=== PATIENT | male | born 1930 | race American Indian/Alaskan Native ===

== ENCOUNTER 2017-07-24 12:01 | Emergency (ER) | payer MEDICARE ==
--- NOTE | 2017-07-24 13:58 | Emergency Department Report ---
Blank Doc - Documentation Documentation: Patient is an 86-year-old male postop history of osteoarthritis who is presenting with belly and chest pain. Cystoscopy gone on for the last couple days. He called EMS last night and kept him calling due to feeling "weak. I will work up patient for ACS and electrolyte abnormality.
[2017-07-24 14:09] LABS: BUN/Creatinine Ratio 22; Blood Urea Nitrogen 24 mg/dL (9-20); Calcium 8.8 mg/dL (8.4-10.2); Hemolysis Index 20
[2017-07-24 14:13] LABS: Basophils % (Auto) 0.4 % (0.0-1.8); Lymphocytes # (Auto) 1.2 K/mm3 (1.2-5.4); Mean Corpuscular HGB Conc 32 % (32-34); Mean Corpuscular Volume 74 fl (84-94); Monocytes # (Auto) 0.6 K/mm3 (0.0-0.8); Monocytes % (Auto) 13.3 % (0.0-7.3); Platelet Count 165 K/mm3 (140-440); Red Blood Count 5.51 M/mm3 (3.65-5.03); Red Cell Distribution Width 14.2 % (13.2-15.2)
[2017-07-24 14:17] LABS: Mean Corpuscular Hemoglobin 24 pg (28-32)
[2017-07-24 14:22] LABS: Alanine Aminotransferase 21 units/L (7-56); Albumin 4.1 g/dL (3.9-5)
[2017-07-24 14:34] LABS: Bilirubin,Direct < 0.2 mg/dL (0-0.2)
--- NOTE | 2017-07-24 14:52 | Emergency Department Report ---
- General Chief complaint: Weakness Stated complaint: WEAKNESS Time Seen by Provider: 07/24/17 14:18 Source: patient Mode of arrival: Ambulatory Limitations: No Limitations - History of Present Illness Initial comments: Generalized weakness loose stool yellowish cough and left-sided chest pain. Told nurse he was having balance problems but he apparently misplaced his walker and his cane he denies any new focal deficits no headache here for evaluation of loose stool yellowish cough and left-sided chest pain MD Complaint: generalized weakness Location: generalized Severity scale (0 -10): 0 - Related Data Home Medications Medication Instructions Recorded Confirmed Last Taken Acetaminophen/Diphenhydramine 1 each PO Q6H PRN 05/04/16 05/04/16 Unknown [Tylenol Pm Ex-Strength Caplet] Foot Cleanser Combination No.1 1 each TP QDAY 05/04/16 05/04/16 Unknown [Kirby's Foot] Hydrocortisone 1% [Hydrocortisone 1 applicatio TP TID 05/04/16 05/04/16 Unknown 1% CREAM] Menthol [Biofreeze] 118 ml TP QDAY 05/04/16 05/04/16 Unknown Previous Rx's Medication Instructions Recorded Last Taken Type Triamcinolone 0.5% [Kenalog 0.5% 1 applic TP BID PRN #30 gram 05/04/16 Unknown Rx CREAM] Doxycycline [Vibramycin CAP] 100 mg PO Q12HR #14 capsule 07/24/17 Unknown Rx Oseltamivir Phosphate [Tamiflu] 75 mg PO BID #10 ml 07/24/17 Unknown Rx Allergies Allergy/AdvReac Type Severity Reaction Status Date / Time aspirin Allergy Bleeding Verified 10/30/13 10:08 ED Review of Systems ROS: Stated complaint: WEAKNESS Other details as noted in HPI Comment: All other systems reviewed and negative Constitutional: denies: diaphoresis, fever, malaise Respiratory: cough. denies: shortness of breath, SOB with exertion, SOB at rest , stridor Cardiovascular: chest pain, dyspnea on exertion. denies: palpitations Gastrointestinal: diarrhea. denies: abdominal pain, nausea, vomiting, hematemesis, melena, hematochezia Musculoskeletal: denies: joint swelling, arthralgia, myalgia Neurological: as per HPI. denies: headache, weakness, numbness, paresthesias, confusion, abnormal gait, vertigo ED Past Medical Hx - Past Medical History Previous Medical History?: Yes Hx Hypertension: Yes Hx CVA: Yes (2011) Hx GERD: Yes Hx Arthritis: Yes Additional medical history: back pain - Surgical History Past Surgical History?: Yes Additional Surgical History: Prostate - Social History Smoking Status: Never Smoker Substance Use Type: None - Medications Home Medications: Home Medications Medication Instructions Recorded Confirmed Last Taken Type Acetaminophen/Diphenhydramine 1 each PO Q6H PRN 05/04/16 05/04/16 Unknown History [Tylenol Pm Ex-Strength Caplet] Foot Cleanser Combination No.1 1 each TP QDAY 05/04/16 05/04/16 Unknown History [Kirby's Foot] Hydrocortisone 1% [Hydrocortisone 1 applicatio TP TID 05/04/16 05/04/16 Unknown History 1% CREAM] Menthol [Biofreeze] 118 ml TP QDAY 05/04/16 05/04/16 Unknown History Triamcinolone 0.5% [Kenalog 0.5% 1 applic TP BID PRN #30 gram 05/04/16 Unknown Rx CREAM] Doxycycline [Vibramycin CAP] 100 mg PO Q12HR #14 capsule 07/24/17 Unknown Rx Oseltamivir Phosphate [Tamiflu] 75 mg PO BID #10 ml 07/24/17 Unknown Rx ED Physical Exam - General Limitations: No Limitations General appearance: alert, in no apparent distress - Head Head exam: Present: atraumatic, normocephalic - Eye Eye exam: Present: normal appearance, PERRL, EOMI - ENT ENT exam: Present: normal exam - Neck Neck exam: Present: normal inspection - Respiratory Respiratory exam: Present: rhonchi. Absent: respiratory distress, accessory muscle use, decreased breath sounds, prolonged expiratory - Cardiovascular Cardiovascular Exam: Present: regular rate, normal rhythm, normal heart sounds - GI/Abdominal GI/Abdominal exam: Present: soft. Absent: distended, tenderness, guarding, rebound, rigid, mass, bruit, pulsatile mass - Extremities Exam Extremities exam: Present: normal inspection, normal capillary refill - Back Exam Back exam: Present: normal inspection. Absent: tenderness, CVA tenderness (R) - Neurological Exam Neurological exam: Present: alert, oriented X3, CN II-XII intact, other (nl cerebellar). Absent: motor sensory deficit ED Course Vital Signs 07/24/17 07/24/17 07/24/17 12:25 14:36 14:43 Temperature 98.9 F Pulse Rate 81 91 H 84 Respiratory 18 13 17 Rate Blood Pressure 126/74 Blood Pressure 134/70 [Left] O2 Sat by Pulse 97 99 Oximetry 07/24/17 07/24/17 07/24/17 14:44 15:00 15:16 Temperature Pulse Rate 84 79 102 H Respiratory 19 12 Rate Blood Pressure 117/67 117/67 Blood Pressure [Left] O2 Sat by Pulse 97 97 Oximetry 07/24/17 07/24/17 16:12 16:16 Temperature Pulse Rate 80 Respiratory 16 Rate Blood Pressure 117/67 117/67 Blood Pressure [Left] O2 Sat by Pulse 95 98 Oximetry - Reevaluation(s) Reevaluation #1: 07/24/17 17:49 pt wJovanny marcial and arlin mccurdy ED Medical Decision Making - Lab Data Result diagrams: 07/24/17 13:20 07/24/17 13:20 - EKG Data -: EKG Interpreted by Me EKG shows normal: sinus rhythm - EKG Data When compared to previous EKG there are: other (no stemi, no actue ischemic changes) - Radiology Data Radiology results: report reviewed - Medical Decision Making no pe, no pna, ekg and trop unremeariable , ssx c/w bronchtis, d/c home, no evidence emergent process at this time requriring further testing or admit, no evidence acs, ua neg Critical care attestation.: If time is entered above; I have spent that time in minutes in the direct care of this critically ill patient, excluding procedure time. ED Disposition Clinical Impression: Bronchitis, Atypical chest pain Disposition: - TO HOME OR SELFCARE Is pt being admited?: No Condition: Stable Instructions: Chronic Bronchitis (ED), Chest Pain (ED) Additional Instructions: see you;r 2 days, return if worse Prescriptions: Doxycycline [Vibramycin CAP] 100 mg PO Q12HR #14 capsule Oseltamivir Phosphate [Tamiflu] 75 mg PO BID #10 ml Referrals: PRIMARY CARE, [Primary Care Provider] - 3-5 Days Time of Disposition: 17:53
--- NOTE | 2017-07-24 15:04 | XRay Report ---
FINAL REPORT PROCEDURE: XR CHEST 1V AP TECHNIQUE: Chest radiograph anteroposterior view. CPT 44016 HISTORY: WEAKNESS COMPARISON: No prior studies are available for comparison. FINDINGS: Heart: Normal. Mediastinum/Vessels: Tortuous unwinding of aorta Lungs/Pleural space: Pleural plaque calcification left apex. Pleural reflection or slight atelectasis right lung base. Suspect mild COPD Bony thorax: No acute osseous abnormality. Life support devices: None. IMPRESSION: No definitive infiltrate significant effusion or pneumothorax.
--- NOTE | 2017-07-24 16:15 | Cat Scan Report ---
FINAL REPORT EXAM: CT ANGIO CHEST HISTORY: chest pain TECHNIQUE: CT chest CT angiogram with reconstructions PRIORS: None. FINDINGS: There is no evidence of filling defect within the central pulmonary vasculature to suggest the presence of acute pulmonary embolus. No evidence of mediastinal pathologic lymph node enlargement There is aneurysmal dilatation of the ascending thoracic aorta measuring 4.9 x 4.7 centimeters. Descending aorta is normal in caliber measuring 2.6 centimeters. There is no evidence for intimal flap to suggest presence of dissection. No focal pulmonary infiltrate identified. No pleural fluid collection seen. No acute pulmonary abnormality noted. Visualized portion of the upper abdomen demonstrates no acute change. IMPRESSION: Ascending aortic aneurysm no evidence for dissection No CT evidence for acute pulmonary embolus
[2017-07-24 17:15] LABS: Bilirubin,Urine NEG (Negative); Blood,Urine NEG (Negative); Color,Urine Yellow (Yellow); Mucus,Urine FEW /HPF; Nitrite,Urine NEG (Negative); Protein,Urine <15 mg/dL mg/dL (Negative); RBC,Urine < 1.0 /HPF (0.0-6.0); Urobilinogen,Urine < 2.0 mg/dL (<2.0); WBC,Urine < 1.0 /HPF (0.0-6.0)
[2017-07-24 18:37] VITALS: BP 134/58
== END 2017-07-24 18:38 | disposition home or self-care (01) ==
LOC: ED 12:01
DX: J40 Bronchitis, not specified as acute or chronic (principal); R07.89 Other chest pain; I10 Essential (primary) hypertension; Z86.73 Personal history of transient ischemic attack (TIA), and cerebral infarction without residual deficits; K21.9 Gastro-esophageal reflux disease without esophagitis; M19.90 Unspecified osteoarthritis, unspecified site; Z88.6 Allergy status to analgesic agent
CPT/HCPCS: 36415; 71045; 71275; 80048; 80074; 81001; 84484; 85025; 93005; 93010; 99285; Q9967

== ENCOUNTER 2019-04-25 09:23 | Emergency (ER) | payer MEDICARE ==
[2019-04-25 10:28] LABS: Bilirubin,Urine NEG (Negative); Blood,Urine NEG (Negative); Color,Urine Straw (Yellow); Protein,Urine <15 mg/dL mg/dL (Negative); Urobilinogen,Urine < 2.0 mg/dL (<2.0); WBC,Urine < 1.0 /HPF (0.0-6.0)
[2019-04-25 11:31] LABS: Hematocrit 40.5 % (35.5-45.6); Hemoglobin 12.6 gm/dl (11.8-15.2); Mean Corpuscular HGB Conc 31 % (32-34); Mean Corpuscular Volume 77 fl (84-94); Platelet Count 206 K/mm3 (140-440); Red Blood Count 5.25 M/mm3 (3.65-5.03)
[2019-04-25 12:17] LABS: Alanine Aminotransferase 13 units/L (7-56); Albumin 4.2 g/dL (3.9-5); BUN/Creatinine Ratio 13; Blood Urea Nitrogen 12 mg/dL (9-20); Calcium 9.5 mg/dL (8.4-10.2); Hemolysis Index 3
--- NOTE | 2019-04-25 13:06 | Emergency Department Report ---
ED General Adult HPI - General Chief complaint: Abdominal Pain Stated complaint: BACK AND ABD PAIN Time Seen by Provider: 04/25/19 11:07 Source: patient Mode of arrival: Ambulatory Limitations: No Limitations - History of Present Illness Initial comments: 88-year-old -Martiniquais male presents to the emergency room for chronic back pain, chronic left shoulder pain and right side abdominal pain patient states he's had abdominal pain 1 month. He can patient states drinking makes it worse. Patient says it's burning. Patient reports he's had his appendix taken out. Review of patient's medications shows that he is supposed to be on Protonix [id number] was well 2017 and still has a full bottle. Patient also supposed to be taken lisinopril which his last field in September 2017 as well as level thyroxine last field September 2018 and loratadine which he last field was in October 2017. Patient states that he recently saw his primary care doctor 2 weeks ago. Onset/Timin -: month(s) Location: abdomen, left, upper extremity (shoulder) Quality: aching Consistency: intermittent Improves with: none Worsens with: eating (drinking makes his abdomen burn) - Related Data Home Medications Medication Instructions Recorded Confirmed Last Taken Acetaminophen/Diphenhydramine 1 each PO Q6H PRN 05/04/16 05/04/16 Unknown [Tylenol Pm Ex-Strength Caplet] Foot Cleanser Combination No.1 1 each TP QDAY 05/04/16 05/04/16 Unknown [Kirby's Foot] Hydrocortisone 1% [Hydrocortisone 1 applicatio TP TID 05/04/16 05/04/16 Unknown 1% CREAM] Menthol [Biofreeze] 118 ml TP QDAY 05/04/16 05/04/16 Unknown Previous Rx's Medication Instructions Recorded Last Taken Type Triamcinolone 0.5% [Kenalog 0.5% 1 applic TP BID PRN #30 gram 05/04/16 Unknown Rx CREAM] DOXYCYCLINE Hyclate [Vibramycin 100 mg PO Q12HR #14 capsule 07/24/17 Unknown Rx CAP] Oseltamivir Phosphate [Tamiflu] 75 mg PO BID #10 ml 07/24/17 Unknown Rx Allergies Allergy/AdvReac Type Severity Reaction Status Date / Time aspirin Allergy Bleeding Verified 10/30/13 10:08 ED Review of Systems ROS: Stated complaint: BACK AND ABD PAIN Other details as noted in HPI ED Past Medical Hx - Past Medical History Previous Medical History?: Yes Hx Hypertension: Yes Hx CVA: Yes (2011) Hx GERD: Yes Hx Arthritis: Yes Additional medical history: back pain - Surgical History Past Surgical History?: Yes Hx Appendectomy: Yes Additional Surgical History: Prostate - Social History Smoking Status: Former Smoker Substance Use Type: None - Medications Home Medications: Home Medications Medication Instructions Recorded Confirmed Last Taken Type Acetaminophen/Diphenhydramine 1 each PO Q6H PRN 05/04/16 05/04/16 Unknown History [Tylenol Pm Ex-Strength Caplet] Foot Cleanser Combination No.1 1 each TP QDAY 05/04/16 05/04/16 Unknown History [Kirby's Foot] Hydrocortisone 1% [Hydrocortisone 1 applicatio TP TID 05/04/16 05/04/16 Unknown History 1% CREAM] Menthol [Biofreeze] 118 ml TP QDAY 05/04/16 05/04/16 Unknown History Triamcinolone 0.5% [Kenalog 0.5% 1 applic TP BID PRN #30 gram 05/04/16 Unknown Rx CREAM] DOXYCYCLINE Hyclate [Vibramycin 100 mg PO Q12HR #14 capsule 07/24/17 Unknown Rx CAP] Oseltamivir Phosphate [Tamiflu] 75 mg PO BID #10 ml 07/24/17 Unknown Rx ED Physical Exam - General Limitations: No Limitations General appearance: alert, in no apparent distress - Head Head exam: Present: atraumatic, normocephalic - Eye Eye exam: Present: normal appearance - ENT ENT exam: Present: mucous membranes moist - Respiratory Respiratory exam: Present: normal lung sounds bilaterally. Absent: respiratory distress - Cardiovascular Cardiovascular Exam: Present: regular rate, normal rhythm. Absent: systolic murmur, diastolic murmur, rubs, gallop - GI/Abdominal GI/Abdominal exam: Present: soft. Absent: tenderness, guarding - Back Exam Back exam: Present: normal inspection - Neurological Exam Neurological exam: Present: alert, oriented X3 - Psychiatric Psychiatric exam: Present: normal affect, normal mood - Skin Skin exam: Present: warm, dry, intact, normal color. Absent: rash ED Course Vital Signs 04/25/19 04/25/19 09:32 14:15 Temperature 98.1 F 97.7 F Pulse Rate 70 61 Respiratory 16 18 Rate Blood Pressure 158/74 Blood Pressure 191/89 [Left] O2 Sat by Pulse 98 98 Oximetry ED Medical Decision Making - Lab Data Result diagrams: 04/25/19 11:21 04/25/19 11:21 Laboratory Last Values WBC 4.9 K/mm3 (4.5-11.0) 04/25/19 11:21 RBC 5.25 M/mm3 (3.65-5.03) H 04/25/19 11:21 Hgb 12.6 gm/dl (11.8-15.2) 04/25/19 11:21 Hct 40.5 % (35.5-45.6) 04/25/19 11:21 MCV 77 fl (84-94) L 04/25/19 11:21 MCH 24 pg (28-32) L 04/25/19 11:21 MCHC 31 % (32-34) L 04/25/19 11:21 RDW 15.0 % (13.2-15.2) 04/25/19 11:21 Plt Count 206 K/mm3 (140-440) 04/25/19 11:21 Seg Neutrophils % [facility] [employer] [facility] 04/25/19 11:21 Sodium 139 mmol/L (137-145) 04/25/19 11:21 Potassium 4.2 mmol/L (3.6-5.0) 04/25/19 11:21 Chloride 100.9 mmol/L (98-107) 04/25/19 11:21 Carbon Dioxide 24 mmol/L (22-30) 04/25/19 11:21 Anion Gap 18 mmol/L 04/25/19 11:21 BUN 12 mg/dL (9-20) 04/25/19 11:21 Creatinine 0.9 mg/dL (0.8-1.5) 04/25/19 11:21 Estimated GFR > 60 ml/min 04/25/19 11:21 BUN/Creatinine Ratio 13 % 04/25/19 11:21 Glucose 86 mg/dL (75-100) 04/25/19 11:21 Calcium 9.5 mg/dL (8.4-10.2) 04/25/19 11:21 Total Bilirubin 0.40 mg/dL (0.1-1.2) 04/25/19 11:21 AST 21 units/L (5-40) 04/25/19 11:21 ALT 13 units/L (7-56) 04/25/19 11:21 Alkaline Phosphatase 91 units/L (35-129) 04/25/19 11:21 Total Protein 7.7 g/dL (6.3-8.2) 04/25/19 11:21 Albumin 4.2 g/dL (3.9-5) 04/25/19 11:21 Albumin/Globulin Ratio 1.2 % 04/25/19 11:21 Lipase 19 units/L (13-60) 04/25/19 11:21 Urine Color Straw (Yellow) 04/25/19 10:01 Urine Turbidity Clear (Clear) 04/25/19 10:01 Urine pH 7.0 (5.0-7.0) 04/25/19 10:01 Ur Specific [place] 1.005 (1.003-1.030) 04/25/19 10:01 Urine Protein <15 mg/dl mg/dL (Negative) 04/25/19 10:01 Urine Glucose (UA) Neg mg/dL (Negative) 04/25/19 10:01 Urine Ketones Neg mg/dL (Negative) 04/25/19 10:01 Urine Blood Neg (Negative) 04/25/19 10:01 Urine Nitrite Neg (Negative) 04/25/19 10:01 Urine Bilirubin Neg (Negative) 04/25/19 10:01 Urine Urobilinogen < 2.0 mg/dL (<2.0) 04/25/19 10:01 Ur Leukocyte Esterase Neg (Negative) 04/25/19 10:01 Urine WBC (Auto) < 1.0 /HPF (0.0-6.0) 04/25/19 10:01 Urine RBC (Auto) 2.0 /HPF (0.0-6.0) 04/25/19 10:01 - Radiology Data Radiology results: report reviewed Patient: JASMIN MEDINA MR#: [id number] : 1930 Acct:[id number] Age/Sex: 88 / M ADM Date: 04/25/19 Loc: ED Attending Dr: Ordering Physician: DEMETRIA HELLER Date of Service: 04/25/19 Procedure(s): CT abdomen pelvis w con Accession Number(s): [id number] cc: DEMETRIA HELLER CT abdomen pelvis w con INDICATION: abd pain. TECHNIQUE: All CT scans at this location are performed using the following dose modulation technique: Automated exposure control. Helical slices were obtained through the abdomen and pelvis. 100 cc of Omnipaque 300 is administered. COMPARISON: None available. FINDINGS: Abdomen: The lung bases are clear. The liver, spleen, pancreas, adrenal glands, and kidneys, and small bowel show no acute abnormality. There is no obstruction, inflammation, or free air. Atherosclerotic calcifications are noted in the aorta and iliac arteries. There is a moderate amount stool in colon. Pelvis: There is no obstruction or inflammation. Multiple phleboliths are noted. There is no inflammatory change. There are no abnormal fluid collections. On review of bone windows, no acute osseous abnormalities are seen. IMPRESSION: 1. There is no obstruction, inflammation, or free air. There are no abnormal collections. No acute abnormality is seen. Signer Name: Hernando Pond MD Signed: 04/25/2019 1:21 PM Workstation Name: [id number] Transcribed By: Dictated By: Hernando Pond MD Electronically Authenticated By: Hernando Pond MD Signed Date/Time: 04/25/19 1321 DD/ 1317 TD/TT: - Medical Decision Making 88-year-old -Martiniquais male presents to the emergency room for chronic back pain, chronic left shoulder pain and right side abdominal pain patient states he's had abdominal pain 1 month. He can patient states drinking makes it worse. Patient says it's burning. Patient reports he's had his appendix taken out. Review of patient's medications shows that he is supposed to be on Protonix [id number] was well 2017 and still has a full bottle. Patient also supposed to be taken lisinopril which his last field in September 2017 as well as level thyroxine last field September 2018 and loratadine which he last field was in October 2017. Patient states that he recently saw his primary care doctor 2 weeks ago. Labs are all stable CT scan shows no acute abnormalities. Patient should follow-up with his primary care provider. Critical care attestation.: If time is entered above; I have spent that time in minutes in the direct care of this critically ill patient, excluding procedure time. ED Disposition Clinical Impression: Arthritis of shoulder, Nonspecific abdominal pain, Chronic back pain greater than 3 months duration, Retained feces Disposition: DC-01 TO HOME OR SELFCARE Is pt being admited?: No Does the pt Need Aspirin: No Condition: Stable Instructions: Constipation (ED), High Fiber Diet (ED), Osteoarthritis (ED), Chronic Back Pain (ED) Referrals: PRIMARY CARE, [Primary Care Provider] - 3-5 Days Forms: Accompanied Note
--- NOTE | 2019-04-25 13:25 | Cat Scan Report ---
CT abdomen pelvis w con INDICATION: abd pain. TECHNIQUE: All CT scans at this location are performed using the following dose modulation technique: Automated exposure control. Helical slices were obtained through the abdomen and pelvis. 100 cc of Omnipaque 30 0 is administered. COMPARISON: None available. FINDINGS: Abdomen: The lung bases are clear. The liver, spleen, pancreas, adrenal glands, and kidneys, and smal l bowel show no acute abnormality. There is no obstruction, inflammation, or free air. Atheroscleroti c calcifications are noted in the aorta and iliac arteries. There is a moderate amount stool in colon . Pelvis: There is no obstruction or inflammation. Multiple phleboliths are noted. There is no inflamma tory change. There are no abnormal fluid collections. On review of bone windows, no acute osseous abnormalities are seen. IMPRESSION: 1. There is no obstruction, inflammation, or free air. There are no abnormal collections. No acute ab normality is seen. Signer Name: Hernando Pond MD Signed: 04/25/2019 1:21 PM Workstation Name: [id number]
[2019-04-25 13:43] LABS: Hypochromasia 1+; Platelet Estimate Consistent w Auto; Total Cells Counted 100
[2019-04-25 14:17] VITALS: BP 191/89
== END 2019-04-25 14:15 | disposition home or self-care (01) ==
LOC: ED 09:23
DX: M19.012 Primary osteoarthritis, left shoulder (principal); M54.9 Dorsalgia, unspecified; G89.29 Other chronic pain; K59.00 Constipation, unspecified; I10 Essential (primary) hypertension; K21.9 Gastro-esophageal reflux disease without esophagitis; Z90.49 Acquired absence of other specified parts of digestive tract; Z87.891 Personal history of nicotine dependence; Z88.6 Allergy status to analgesic agent; Z79.899 Other long term (current) drug therapy
CPT/HCPCS: 36415; 74177; 80053; 81001; 83690; 85007; 85025; 99284; Q9967